=== PATIENT | male | born 1945 | race Caucasian/White ===

== ENCOUNTER 2024-02-29 06:18 | Day surgery (SDC) | payer MEDICARE, BC, OTHER ==
[2024-02-29] MEDS ORDERED: Midazolam 1 MG/ML 2 ML SDV ONE (06:19)
[2024-02-29] MEDS ORDERED: fentaNYL 100 MCG/2 ML SDV ONE (06:20)
[2024-02-29] MEDS: Dextrose 5%-0.45% NaCl 1,000 ML IV SCH (06:37)
[2024-02-29] MEDS: fentaNYL 100 MCG/2 ML SDV IV ONE ×2 (08:04→08:05)
[2024-02-29] MEDS: Midazolam 1 MG/ML 2 ML SDV IV ONE ×2 (08:06→08:07)
[2024-02-29 08:18] VITALS: BP 140/70; PULSE 68
== END 2024-02-29 09:23 | disposition home or self-care (01) ==
LOC: DL.ENDO 06:18
PROVIDERS: ATTEND Internal Medicine Gastroenterology
DX: R10.13 Epigastric pain (principal); E11.9 Type 2 diabetes mellitus without complications; E78.5 Hyperlipidemia, unspecified; K31.7 Polyp of stomach and duodenum
CPT/HCPCS: 87077; 88305; J2250; J3010; J7799

== ENCOUNTER 2024-03-04 05:16 | Day surgery (SDC) | payer MEDICARE, BC ==
[2024-03-04] MEDS ORDERED: fentaNYL 100 MCG/2 ML SDV IV ONE (05:17)
[2024-03-04] MEDS ORDERED: Midazolam 1 MG/ML 2 ML SDV IV ONE (05:17)
[2024-03-04] MEDS ORDERED: Midazolam 1 MG/ML 2 ML SDV ONE (06:12)
[2024-03-04] MEDS ORDERED: fentaNYL 100 MCG/2 ML SDV ONE (06:13)
[2024-03-04] MEDS: fentaNYL 100 MCG/2 ML SDV IV ONE ×2 (06:22→06:23)
[2024-03-04] MEDS: Midazolam 1 MG/ML 2 ML SDV IV ONE ×4 (06:23→06:31)
[2024-03-04] MEDS: Dextrose 5%-0.45% NaCl 1,000 ML IV SCH (08:24)
[2024-03-04 09:34] VITALS: BP 123/49; PULSE 54
== END 2024-03-04 07:49 | disposition home or self-care (01) ==
LOC: DL.ENDO 05:16
PROVIDERS: ATTEND Internal Medicine Gastroenterology
DX: K52.9 Noninfective gastroenteritis and colitis, unspecified (principal); E11.9 Type 2 diabetes mellitus without complications; E78.5 Hyperlipidemia, unspecified
CPT/HCPCS: 45380; J2250; J3010; J7799; 88305